=== PATIENT | male | born 1985 | race Caucasian/White ===

== ENCOUNTER 2024-04-05 02:42 | Emergency (ER) | payer BC, SELFPAY ==
[2024-04-05 02:43] VITALS: BMI 31.3
[2024-04-05 02:45] VITALS: BP 138/89
--- NOTE | 2024-04-05 03:21 | ED.GENMED ---
History of Present Illness
General
Chief Complaint: Back Pain
Source: patient
Exam Limitations: none
Time Seen by Provider: 04/05/24 03:07
Travel History
Have you had any contact with someone who has COVID-19?: No
Do you have any symptoms of coronavirus? Fever > 100 degrees, chills, cough, shortness of breath, sore throat, loss of taste or smell, muscle aches, or headache?: No
History of Present Illness
History of Present Illness:
See MDM
Past History
Past History
ED Past Medical History: None
ED Past Surgical History: None
Social History
Tobacco: Non-smoker
Alcohol: None
Phy Exam
Physical Exam
Physical Exam:
See MDM
Course
Orders/Labs/Results
Orders:
Orders
04/05/24 03:18
Oxycodone/Acetaminophen [Percocet 5/325] 1 tablet PO NOW STA
Prednisone [Deltasone] 50 mg PO NOW STA
Lumbar Spine Complete, 4 View [CR Lumbar Spine Comp Min 4 Vw*] Urgent
Comment:
Reason For Exam: left back pain
Vital Signs
Initial and Last Documented VS:
Initial Vital Signs
Temp Pulse Resp BP Pulse Ox
98.4 F 88 16 138/89 97
04/05/24 02:45 04/05/24 02:45 04/05/24 02:45 04/05/24 02:45 04/05/24 02:45
Last Documented Vital Signs
Temp Pulse Resp BP Pulse Ox
98.4 F 88 16 138/89 97
04/05/24 02:45 04/05/24 02:45 04/05/24 02:45 04/05/24 02:45 04/05/24 02:45
MDM/Problems Addressed
Differential Diagnosis Includes:
HPI and MDM Narrative:
38-year-old male presenting with left-sided back pain. This occurred over the past few days. He is having trouble sleeping. There is no position that helps. He did take Toradol and Tylenol a few hours ago which helped somewhat but pain recurred.
Denies prior history of kidney stones or sciatica. Denies recent trauma
On exam, he does have mild tenderness in the sacroiliac region. The pain does radiate down his thigh. Distal extremity neurovascular intact. Will obtain lumbar x-ray and treat likely sciatica with pain medicine and steroids
Physical exam
General: Well appearing and non-toxic
HEENT: protecting airway
Neck: appears supple
CV: No evidence of cyanosis
Resp: No accessory muscle use
Abd: Non-distended
Back: No lumbar tenderness
Extremities: No deformities. Distal left leg neurovascular intact. Negative straight leg raise
Neuro: alert
Psych: Normal affect
Skin: Intact
Problems Addressed including Acute and Chronic Conditions affecting care:
1. Sciatica
Acuity: acute
Prognosis: stable
Details: Will give steroids and pain medicine and obtain lumbar x-ray
Updates
On reassessment after pain medicine, patient feeling better. We discussed incidental finding of scoliosis and discussed following up with his doctor
Differential Diagnosis (but not limited to): Sciatica, muscle spasm
Testing considered: CT abdomen/pelvis
Drug therapy (if applicable): OTC meds, please see d/c instruction regarding Rx drugs
Amount and/or Complexity of Data Reviewed
Clinical info obtained from: Patient
External data reviewed: N/A
Labs I independently reviewed (but not limited to): N/A
Radiology: X-ray independently reviewed: Lumbar x-ray shows scoliosis. No fracture
Pulse Ox: not hypoxic
EKG independently reviewed: N/A
Foot Caster: N/A
Critical Care: N/A
Risk of Complication:
Social Determinants of health: Good social support
Discussed with other providers: N/A
Escalation of Care includes Admit/Obs: After being observed in the Emergency Department, pt stable for discharge.
Occasional wrong word or 'sound a like' substitutions may have occurred due to the inherent limitations of voice recognition software. Read the chart carefully and recognize, using context, where substitutions have occurred.
*Critical Care Note
Total Time (30-74mins, 75-104mins- exclusive of procedures): Not Applicable
ED Attending Note
-
Portions of this chart may have been created with voice recognition software.� Occasional wrong word or��sound alike� substitutions may have occurred due to the inherent limitations of voice recognition software.
Discharge Plan
Departure
Patient Disposition: Home (Routine Discharge)
Date of Disposition: 04/05/24
Time of Disposition: 04:35
Patient with high blood pressure during this ER visit?: No
Discharge Problem:
Sciatica
Instructions: Sciatica (DC)
Prescriptions:
New
prednisone 20 mg tablet
40 mg PO DAILY Qty: 10 0RF
oxycodone 5 mg tablet
5 mg PO Q8H PRN (Reason: Pain) Qty: 10 0RF
Referrals:
NONE,* [Family Provider] -
Activity Restrictions/Additional Instructions:
Please return for any worsening symptoms.
You may return at any time if you have further concerns.
Please follow up with your doctor at the first available appointment, preferably this week.
Interventions
Interventions:
*Risk Screen - Suicide Last Done: 04/05/24 02:45
*General Assessment Last Done: 04/05/24 03:04
*Neglect/Abuse Screening Last Done: 04/05/24 02:45
*ED COVID-19 Vaccine History Last Done: 04/05/24 02:45
ED-Musculoskeletal Assessment Last Done: 04/05/24 03:05
Discharge Date and Time
Print Language: POLISH
[2024-04-05] MEDS: PERCOCET 5/325 1 TABLET PO (03:37)
[2024-04-05] MEDS: DELTASONE 50 MG PO (03:37)
== END 2024-04-05 04:48 | disposition home or self-care (01) ==
LOC: EMR 02:42
PROVIDERS: EMERGENCY PHYSICIAN Student in an Organized Health Care Education/Training Program
DX: M54.42 Lumbago with sciatica, left side (principal)
CPT/HCPCS: 99283; 72110